=== PATIENT | female | born 1970 | race Caucasian/White ===

== ENCOUNTER 2016-09-19 19:16 | Emergency (ER) | payer OTHER ==
[~2016-09-19] VITALS: Ht 172.7 cm; Wt 109.0 kg
[~2016-09-19 19:16] MED LIST: CALC250T PO; CETI10 PO; CHOL1CAP6 PO; DEXI30CA2 PO; FISH100020 PO; MULT-65 PO; SERT-129 PO; VITA250L PO; XANA0.5T PO
[2016-09-19 19:31] VITALS: BP 146/93; PULSE 84; RESP 20; TEMP 98.6; O2SAT 98
[2016-09-19 19:54] VITALS: RESP 18
--- NOTE | 2016-09-19 19:57 | PD ---
HPI . Left thumb laceration about 30-45 minutes ago Chief Complaint: Laceration/Skin Injury Time Seen by Provider: 19:55 Travel History International Travel<30 days: No Contact w/Intl Traveler<30days: No Traveled to known affect area: No History of Present Illness HPI 46-year-old female with history of prior gastric bypass, anxiety and depression here with complaints of a left thumb laceration that she sustained about 30-45 minutes prior while she was cutting some sticky tile. Patient is apparently in the process of moving and trying to sell her house and do some last minute repairs. She was cutting a tile with a knife when she accidentally pushed forward and cut the opposite hand. She is right-hand dominant. Today she is complaining of pain at the laceration site that is 9/10 without any radiation. She has full range of motion of all of her digits in her left hand. She has no other complaints. Last tetanus unknown. Right hand dominant. PFSH Past Medical History Blood Disorders: No Anxiety: Yes Depression: Yes Cancer: No Cardiovascular Problems: No High Cholesterol: Yes Diabetes: No Diminished Hearing: No Endocrine: No GERD: Yes Genitourinary: No Hepatitis: No Hiatal Hernia: Yes Hypertension: Yes Immune Disorder: Yes (POSSIBLE CELIAC DISEASE) Musculoskeletal: Yes (ARTHRITIS; BACK PAIN -DDD, RIGHT KNEE PAIN) Neurologic: No Psychiatric: Yes (DEPRESSION, ANXIETY) Reproductive: Yes (FIBROIDS) Respiratory: Yes (SLIGHT SLEEP APNEA(DOES NOT USE CPAP)) Sleep Apnea: Yes Thyroid Disease: No : 3 Para: 1 : 1 Past Surgical History Abdominal Surgery: Yes (LONNIE, GASTRIC SLEEVE) AICD: No Cardiac Surgery: No Cholecystectomy: Yes (1999) Ear Surgery: No Eye Surgery: No Genitourinary Surgery: No Gynecologic Surgery: Yes (C SECTION, TUBAL ) Joint Replacement: Yes (LEFT HIP) Oral Surgery: Yes (RIGHT SALIVARY GLAND) Pacemaker: No Thoracic Surgery: No Social History Alcohol Use: Yes (OCCASIONAL) Tobacco Use: No Substance Use: No Allergies-Medications (Allergen,Severity, Reaction): Coded Allergies: No Known Allergies (Unverified , 09/19/16) Reported Meds & Prescriptions Reported Meds & Active Scripts Active Keflex (Cephalexin) 500 Mg Cap 500 Mg PO Q6H Reported Multivitamin Adults (Multiple Vitamins W/ Minerals) 1 Tab 1 Tab PO DAILY Cetirizine (Cetirizine HCl) 10 Mg Tab 10 Mg PO DAILY Sertraline (Sertraline HCl) 100 Mg Tab 200 Mg PO DAILY Restasis Opth Drops (Cyclosporine Opth Drops) 0.05% Emul 1 Drop EACH EYE BID Trazodone (Trazodone HCl) 50 Mg Tab 50 Mg PO HS Xanax (Alprazolam) 0.5 Mg Tab 0.5 Mg PO Q12HR PRN Review of Systems General / Constitutional: No: Fever Eyes: No: Visual changes HENT: No: Headaches Cardiovascular: No: Chest Pain or Discomfort Respiratory: No: Shortness of Breath Gastrointestinal: No: Abdominal Pain Genitourinary: No: Dysuria Musculoskeletal: No: Pain Skin: Positive Other (left thumb laceration), No Rash Neurologic: No: Weakness Psychiatric: No: Depression Endocrine: No: Polydipsia Hematologic/Lymphatic: No: Easy Bruising Physical Exam Narrative GENERAL: AAO x 3, no acute distress, Well-nourished, well-developed patient. SKIN: Warm and dry. No visible rashes or bruising. left thumb laceration measuring approximately 2 cm, HEAD: Normocephalic and atraumatic. EYES: No scleral icterus. No injection or drainage. ENT: No nasal drainage noted. Mucous membranes pink. Airway patent. NECK: Supple, trachea midline. No JVD. CARDIOVASCULAR: Regular rate and rhythm without murmurs, gallops, or rubs. RESPIRATORY: Breath sounds equal bilaterally. No accessory muscle use. No rhonchi or rales. GASTROINTESTINAL: Abdomen soft, non-tender, nondistended. EXTREMITIES: No cyanosis or edema. BACK: Nontender without obvious deformity. No CVA tenderness. PSYCH: AAO x 3, normal affect. LACERATION LOCATION: left thumb LENGTH: 2.5 NUMBER OF STITCHES/USHA: 3 and dermabond REPAIR: The area of the laceration was prepped with Betadine and sterilely draped. The laceration was infiltrated with 1% lidocaine for a digital block with approximately 7.5 cc of lidocaine. The wound was copiously irrigated and explored without evidence of foreign body, tendon injury or neurovascular injury. The wound was closed using 4-0 Ethilon. This was a single layer repair. While placing sutures patient had a panic attack and could not tolerate suture placement; therefore Dermabond was used to reinforce the wound . A sterile dressing was applied. The patient was advised to keep the dressing clean and dry. Patient tolerated the procedure without any complications. Data Data Last Documented VS Vital Signs Date Time Temp Pulse Resp B/P Pulse Ox O2 Delivery O2 Flow Rate FiO2 09/19/16 19:54 18 09/19/16 19:31 98.6 84 146/93 98 Orders Lidocaine 1% Inj (50 Ml) (Xylocaine 1% I (09/19/16 20:00) Tetanus/Diphtheria Tox Adult (Tetanus/Di (09/19/16 20:00) Alprazolam (Xanax) (09/19/16 20:45) MDM Medical Decision Making Medical Screen Exam Complete: Yes Emergency Medical Condition: Yes Medical Record Reviewed: Yes Differential Diagnosis thumb abrasion, thumb laceration, less likely thumb amputation Narrative Course 46-year-old female with history of prior gastric bypass, anxiety and depression here with complaints of a left thumb laceration that she sustained about 30-45 minutes prior while she was cutting some sticky tile. Patient is apparently in the process of moving and trying to sell her house and do some last minute repairs. She was cutting a tile with a knife when she accidentally pushed forward and cut the opposite hand. She is right-hand dominant. Today she is complaining of pain at the laceration site that is 9/10 without any radiation. She has full range of motion of all of her digits in her left hand. She has no other complaints. Patient seen and examined. She does have about a 2.5 cm laceration to her left thumb (dorsal) She will need repair. I have discussed this with her. She is in agreement. Patient became very anxious and had a full-fledged panic attack. Dr. Mcfarland had to come and order some Xanax while I was in the middle of laceration repair. Patient could not tolerate placement of any more sutures therefore used Dermabond to reinforce this wound. She is moving to [facility] tomorrow, therefore I am concerned about reinjury to this area. I've explained to her that sutures can break and it is possible for this wound to reopen. I recommend caution with usage of this extremity. I advised her to try to refrain from using it, so that it can heal properly. She has been advised to have sutures removed in 7-10 days. I asked her to have wound check in 3-[address] her on antibiotics for coverage of any infection. She received tetanus shot without any complications. Procedures Procedure Narrative LACERATION LOCATION: left thumb LENGTH: 2.5 NUMBER OF STITCHES/USHA: 3 and dermabond REPAIR: The area of the laceration was prepped with Betadine and sterilely draped. The laceration was infiltrated with 1% lidocaine for a digital block with approximately 7.5 cc of lidocaine. The wound was copiously irrigated and explored without evidence of foreign body, tendon injury or neurovascular injury. The wound was closed using 4-0 Ethilon. This was a single layer repair. While placing sutures patient had a panic attack and could not tolerate suture placement; therefore Dermabond was used to reinforce the wound . A sterile dressing was applied. The patient was advised to keep the dressing clean and dry. Patient tolerated the procedure without any complications. Diagnosis Primary Impression: Laceration of thumb without foreign body without damage to nail Qualified Code: S61.012A - Laceration of thumb without foreign body without damage to nail, left, initial encounter Patient Instructions: Acute Wound Care (ED), Finger Laceration (ED), General Instructions Additional Instructions: Please return to emergency department if your symptoms return or worsen. Follow up with your primary care provider. Take medications as prescribed. I have provided you with antibiotics to cover for any infection. Please try to limit usage of this extremity. We have discussed that this wound has the possibility of reopening, especially since you are in the process of moving. Try to follow-up with an urgent care in [place] in 3-5 days. These 3 sutures will need to be removed in 7-10 days. You can use ibuprofen or Tylenol as needed for pain. Med/Other Pt SpecificInfo: Prescription(s) given Scripts Cephalexin (Keflex)500 Mg [id number] Mg PO Q6H #28 CAP Ref 0 Prov:Betzy Mcfarland MD 09/19/16 Disposition: 01 DISCHARGE HOME Condition: Stable [place] Sep 19, 2016 19:57
[2016-09-19] MEDS ORDERED: TETANUS/DIPHTHERIA TOXOID ADULT 0.5 ML VIAL IM ONE (20:00)
[2016-09-19] MEDS ORDERED: LIDOCAINE HCL 1% 50 ML VIAL INFIL ONE (20:00)
[2016-09-19] MEDS ORDERED: ALPR.5 PO (20:11)
[2016-09-19] MEDS ORDERED: SERT-129 PO (20:19)
[2016-09-19] MEDS ORDERED: TRAZ50TA12 PO (20:19)
[2016-09-19] MEDS ORDERED: REST0.05 EACH EYE (20:19)
[2016-09-19] MEDS ORDERED: CETI10 PO (20:21)
[2016-09-19] MEDS ORDERED: MULT1TAB84 PO (20:21)
[2016-09-19] MEDS ORDERED: ALPRAZolam 0.5 MG TAB PO ONE (20:45)
[2016-09-19] MEDS ORDERED: CEPH-460 PO (20:56)
== END 2016-09-19 21:19 | disposition home or self-care (01) ==
LOC: PHEFT 19:16
DX: S61.012A Laceration without foreign body of left thumb without damage to nail, initial encounter (principal); F41.0 Panic disorder [episodic paroxysmal anxiety]; I10 Essential (primary) hypertension; E78.00 Pure hypercholesterolemia, unspecified; G47.30 Sleep apnea, unspecified; W26.0XXA Contact with knife, initial encounter; Z23 Encounter for immunization; Z98.84 Bariatric surgery status; Z86.59 Personal history of other mental and behavioral disorders; Z87.19 Personal history of other diseases of the digestive system; Z86.2 Personal history of diseases of the blood and blood-forming organs and certain disorders involving the immune mechanism; Z87.39 Personal history of other diseases of the musculoskeletal system and connective tissue; Z87.42 Personal history of other diseases of the female genital tract
CPT/HCPCS: 12001; 90471; 90714